=== PATIENT | female | born 1990 | race Caucasian/White ===

== ENCOUNTER → 2021-07-25 | Outpatient (CLI) | payer BC ==
[2021-07-25 13:03] LABS: FOLATE 13.1 NG/ML (>5.4); RHEUMATOID FACTOR QUANT < 10.0 IU/ML (<15.0); VITAMIN B12 LEVEL 840 PG/ML (247-911)
== END ==
LOC: M PLALAB 10:47
PROVIDERS: ATTEND Psychiatry & Neurology Neurology
DX: R51.9 Headache, unspecified (principal); A69.20 Lyme disease, unspecified